=== PATIENT | male | born 1960 | race Caucasian/White ===

== ENCOUNTER 2017-07-06 15:31 | Emergency (ER) | payer BC, MEDICAID ==
[~2017-07-06] VITALS: Wt 82.0 kg
[2017-07-06] MEDS ORDERED: HYDR-906 PO (16:41)
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
[2017-07-06] MEDS ORDERED: HYDROCODONE/APAP (5/325) TAB PO ONE (17:00)
[2017-07-06 17:13] VITALS: BP 128/79; PULSE 89; RESP 17; TEMP 98.5
[2017-07-06] MEDS ORDERED: LORA1TAB PO (22:15)
[2017-07-06] MEDS ORDERED: QUET300T13 PO (22:16)
== END 2017-07-06 17:14 | disposition home or self-care (01) ==
LOC: E/R 15:31
DX: S33.5XXA Sprain of ligaments of lumbar spine, initial encounter (principal); G89.4 Chronic pain syndrome; F41.9 Anxiety disorder, unspecified; F17.210 Nicotine dependence, cigarettes, uncomplicated; X58.XXXA Exposure to other specified factors, initial encounter; Y92.9 Unspecified place or not applicable
CPT/HCPCS: Z7502; Z7610; 99283

== ENCOUNTER 2017-07-06 21:24 | Inpatient (IN) | payer MEDICAID ==
[~2017-07-06] VITALS: Ht 180.3 cm; Wt 82.0 kg
[~2017-07-06 21:24] MED LIST: HYDR-906 PO
[2017-07-06] MEDS ORDERED: HALOPERIDOL 5 MG INJ IM STA (21:40)
[2017-07-06] MEDS ORDERED: DIPHTH/TET/ACEL PERTUSS (ADULT) 0.5 ML VIAL IM* ONE (22:00)
[2017-07-06 22:15] LABS: ABNORMAL IP MESSAGE 1; BASOPHIL # 0.1 10^3/ul (0.0-0.1); BASOPHILS % 0.2 % (0.0-2.0); EOSINOPHILS % 0.2 % (0.0-7.0); HEMOGLOBIN 13.9 g/dl (14.0-18.0); LYMPHOCYTES # 1.8 10^3/ul (0.8-2.9); LYMPHOCYTES % 7.2 % (15.0-51.0); MEAN CORPUSCULAR HEMOGLOBIN 31.2 pg (29.0-33.0); MEAN CORPUSCULAR HGB CONC 34.8 g/dl (32.0-37.0); MEAN CORPUSCULAR VOLUME 89.7 fl (82.0-101.0); MEAN PLATELET VOLUME 10.7 fl (7.4-10.4); MONOCYTE # 1.7 10^3/ul (0.3-0.9); NEUTROPHIL # 20.5 10^3/ul (1.6-7.5); NEUTROPHILS % 83.9 % (39.0-77.0); PLATELET COUNT 259 10^3/UL (140-415); POSITIVE DIFF @See below; RED BLOOD COUNT 4.46 10^6/ul (4.70-6.10); RED CELL DISTRIBUTION WIDTH 12.4 % (11.5-14.5); WHITE BLOOD COUNT 24.5 10^3/ul (4.8-10.8)
[2017-07-06] MEDS ORDERED: LORA1TAB PO (22:15)
[2017-07-06] MEDS ORDERED: QUET300T13 PO (22:16)
[2017-07-06] MEDS ORDERED: KETOROLAC 15 MG INJ IV STA (22:30)
[2017-07-06] MEDS ORDERED: SOD CHLORIDE 0.9% 1,000 ML IV STA ×2 (22:30→23:30)
[2017-07-06 22:33] LABS: ALANINE AMINOTRANSFERASE 54 IU/L (13-69); ALBUMIN 5.2 g/dl (3.3-4.9); ALBUMIN/GLOBULIN RATIO 1.57; ALKALINE PHOSPHATASE 75 IU/L (42-121); ANION GAP 24 (8-16); ASPARTATE AMINO TRANSFERASE 75 IU/L (15-46); BILIRUBIN,INDIRECT 0.3 mg/dl (0-1.1); BILIRUBIN,TOTAL 0.3 mg/dl (0.2-1.3); BLOOD UREA NITROGEN 27 mg/dl (7-20); CALCIUM 10.7 mg/dl (8.4-10.2); CARBON DIOXIDE 23 mmol/L (21-31); CHLORIDE 104 mmol/L (97-110); CREATININE 2.29 mg/dl (0.61-1.24); GLUCOSE 134 mg/dl (70-220); POTASSIUM 4.6 mmol/L (3.5-5.1); SODIUM 146 mmol/L (135-144); TOTAL PROTEIN 8.5 g/dl (6.1-8.1)
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
[2017-07-06 22:47] LABS: ETHANOL < 10.0 mg/dl; SALICYLATE < 1.0 mg/dl (5.0-30.0)
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
[2017-07-07] VITALS (12 sets, daily range): BP systolic 108–134; BP diastolic 61–79; PULSE 75–94; RESP 16–20; TEMP 98.1; Ht 180.3 cm; Wt 82.0 kg
[2017-07-07] MEDS ORDERED: CEFTRIAXONE 1 GM/50 ML (PMX) 50 ML IVPB ONE
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
[2017-07-07 00:14] LABS: INR 1.05; PROTIME 13.8 Sec (11.9-14.9); PT RATIO 1.1
[2017-07-07 00:15] LABS: ADD UMIC YES; UR ASCORBIC ACID 40 mg/dL (NEGATIVE); UR BILIRUBIN (Dip) NEGATIVE (NEGATIVE); UR BLOOD (Dip) 1+ mg/dL (NEGATIVE); UR CLARITY SLIGHTLY CLOUDY (CLEAR); UR COLOR YELLOW (YELLOW); UR GLUCOSE (Dip) NEGATIVE (NEGATIVE); UR KETONES (Dip) TRACE mg/dL (NEGATIVE); UR LEUKOCYTE ESTERASE (Dip) NEGATIVE Leu/ul (NEGATIVE); UR MUCUS FEW /HPF (NONE SEEN); UR NITRITE (Dip) NEGATIVE (NEGATIVE); UR RBC 51 /HPF (0-5); UR TOTAL PROTEIN (Dip) 1+ mg/dl (NEGATIVE); UR UROBILINOGEN (Dip) NEGATIVE (NEGATIVE)
--- NOTE | 2017-07-07 00:37 | RADRPT ---
PROCEDURE: XR Knee. CLINICAL INDICATION: Trauma. Pain.. TECHNIQUE: Three views of the left knee are available for review. COMPARISON: None available FINDINGS: There is no fracture. Joint relationships are maintained. Bone mineralization is within normal xie its. A suprapatellar joint effusion is likely. Soft tissues are otherwise unremarkable. IMPRESSION: 1. Probable suprapatellar joint effusion. 2. No acute fracture or dislocation is seen. RPTAT: HMVK .Zenon Acuna MD, MD Date Time Electronically viewed and signed by .Zenon Acuna MD, MD on 07/07/2017 00:37 .K/
--- NOTE | 2017-07-07 00:42 | RADRPT ---
PROCEDURE: XR Knee. CLINICAL INDICATION: Left knee pain. TECHNIQUE: Three views of the left knee. COMPARISON: None available FINDINGS: There is no acute fracture or dislocation. The joint spaces are preserved. No joint effusion is id entified. IMPRESSION: 1. No acute fracture or dislocation of the left knee. RPTAT: HTAR .Alexander Cuba MD, MD Date Time Electronically viewed and signed by .Alexander Cuba MD, on 07/07/2017 00:41 .R/
[2017-07-07 01:41] LABS: BARBITURATES Negative (NEGATIVE); BENZODIAZEPINES Negative (NEGATIVE); CANNABINOIDS Negative (NEGATIVE); COCAINE Negative (NEGATIVE); OPIATES Positive (NEGATIVE)
[2017-07-07] MEDS ORDERED: ACETAMINOPHEN 325 MG TAB PO PRN (02:00)
[2017-07-07] MEDS ORDERED: HYDROmorphONE 0.5 MG/0.5 ML SYG IV PRN (02:00)
[2017-07-07] MEDS ORDERED: ONDANSETRON 4 MG INJ IV PRN (02:00)
[2017-07-07] MEDS ORDERED: NACL 0.9% 3 ML SYG IV SCH (02:00)
[2017-07-07] MEDS ORDERED: LORAZEPAM 2 MG INJ IV PRN (02:00)
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
[2017-07-07] MEDS ORDERED: SOD CHLORIDE 0.9% 1,000 ML IV SCH (03:30)
[2017-07-07] MEDS: HYDROCODONE/APAP (10/325) TAB PO PRN ×3 (03:59→21:33)
[2017-07-07 06:40] LABS: BASOPHILS % 0.2 % (0.0-2.0); EOSINOPHILS # 0.1 10^3/ul (0.0-0.5); EOSINOPHILS % 0.6 % (0.0-7.0); LYMPHOCYTES # 2.1 10^3/ul (0.8-2.9); MEAN CORPUSCULAR HEMOGLOBIN 30.2 pg (29.0-33.0); MEAN CORPUSCULAR HGB CONC 34.3 g/dl (32.0-37.0); MEAN CORPUSCULAR VOLUME 88.2 fl (82.0-101.0); MEAN PLATELET VOLUME 10.5 fl (7.4-10.4); MONOCYTES % 7.8 % (0.0-11.0); NEUTROPHIL # 9.8 10^3/ul (1.6-7.5); PLATELET COUNT 182 10^3/UL (140-415); RED BLOOD COUNT 3.97 10^6/ul (4.70-6.10); RED CELL DISTRIBUTION WIDTH 12.3 % (11.5-14.5)
[2017-07-07 07:12] LABS: ALBUMIN 3.6 g/dl (3.3-4.9); ALBUMIN/GLOBULIN RATIO 1.16; BILIRUBIN,INDIRECT 0.9 mg/dl (0-1.1); BILIRUBIN,TOTAL 0.9 mg/dl (0.2-1.3); CALCIUM 8.8 mg/dl (8.4-10.2); CHOL/HDL RATIO 3.4 RATIO; CREATININE 1.24 mg/dl (0.61-1.24); MAGNESIUM 1.9 mg/dl (1.7-2.5); POTASSIUM 3.8 mmol/L (3.5-5.1); TOTAL PROTEIN 6.7 g/dl (6.1-8.1)
[2017-07-07 07:32] LABS: THYROID STIMULATING HORMONE 1.03 MIU/L (0.465-4.680)
[2017-07-07] MEDS: morphine 2 MG INJ IV PRN ×3 (08:07→18:36)
[2017-07-07] MEDS ORDERED: QUETIAPINE 100 MG TAB PO SCH (09:00)
--- NOTE | 2017-07-07 11:12 | RADRPT ---
PROCEDURE: Renal US. CLINICAL INDICATION: Acute renal failure TECHNIQUE: Multiple sonographic images of the kidneys and bladder were obtained. The images were reviewed on a PACS workstation. COMPARISON: CT abdomen and pelvis without contrast of 07/06/2017 FINDINGS: The right kidney measures 10.4 cm and the left kidney 10 cm in length. No renal mass, calculus or hy dronephrosis is seen bilaterally. Woodson catheter in bladder. IMPRESSION: 1. Unremarkable renal ultrasound. RPTAT: HJES .Jordan Guido MD, MD Date Time Electronically viewed and signed by .Jordan Guido MD, MD on 07/07/2017 11:11 .S/
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
[2017-07-07] MEDS: QUETIAPINE 100 MG TAB PO SCH (21:34)
[2017-07-08] VITALS (10 sets, daily range): BP systolic 100–119; BP diastolic 62–80; PULSE 95–106; RESP 18–20
--- NOTE | 2017-07-08 09:39 | DS ---
Date/Time of Note Date/Time of Note DATE: 07/08/17 TIME: 09:25 Discharge Summary Admission/Discharge Info Admit Date/Time Jul 06, 2017 at 23:37 Discharge Date/Time Discharge Diagnosis Pubic ramus fracture Patient Condition: Fair Hospital Course The patient was found to have acute encephelopathy secondary to methamphetamine intoxication. HIs mental status resolved to baseline with observation alone. He was found to have a fracture of his superior and inferior pubic rami that appear to extend to the pubic symphysis. Dr Lawson consulted on the patient and recommended non-operative management and cleared the patient for discharge. He was encouraged to abstain from methampethamine use and to follow up with his primary doctor regarding the lung nodule seen on CT scan. He will follow up with Dr Lawson as an outpatient Home Meds Active Scripts Hydrocodone/Acetaminophen ([place] 5-325 Tablet) 1 Each Tablet, 1 EACH PO TID for PAIN, #6 TAB Prov:SIL PEARSON MD 07/06/17 Reported Medications Quetiapine Fumarate* (Seroquel*) 300 Mg Tablet, 600 MG PO DAILY, TAB 07/06/17 Lorazepam* (Lorazepam*) 1 Mg Tablet, 1 MG PO DAILY Y for ANXIETY, #60 TAB TAKE 1 TAB 2 OR 3 TIMES A DAY 07/06/17 Primary Care Provider Not On Staff Doctor Time spent on discharge: > 30 minutes VALENTINA COURTNEY MD Jul 08, 2017 09:39
[2017-07-08] MEDS: morphine 2 MG INJ IV PRN ×3 (11:05→19:48)
[2017-07-08] MEDS: HYDROCODONE/APAP (10/325) TAB PO PRN (18:23)
[2017-07-08] MEDS: QUETIAPINE 100 MG TAB PO SCH (21:07)
--- NOTE | 2017-07-08 21:10 | PSY ---
Date/Time of Note Date/Time of Note DATE: 07/09/17 TIME: 00:10 Psychiatric Subjective Eval Consent Pt consented to telemedicine: Yes Subjective Evaluation Patient location: inpatient Chief Complaint: running/yelling in street states " [x] trying to kill me", mult. abrasions History of present illness HPI: The patient is a 56 yo male with ho depression and psychosis, per notes and pt's hx (pt was very evasive, guarded), pt was psychotic, paranoid. It is not clear how police became involved but pt reports he heard a gunshot and was certain people were coming to his home or in his home trying to kill him so he jumped through a window in his home and was running through the streets saying people were going to kill him and was found by police, who then brought him in to hospital on 5149 . This occurred on 07/06/17. Pt broke pubic bone so is now on medicine. Pt initially denied methamphetamine use then said he has used methamphetamine on 07/05/17 after MD told pt that MD is aware that he used. Pt denies that this was related to methamphetamine. Pt martinez snot seem to be aware this was possibly related to methamphetamine but feels event was real. Reports that he his is very scared alone and left the house because she is too scared to be there alone as they are both scared of whomever was going to kill him. Pt initially denied psych admits then admitted it. Pt was very evasive throughout interview, said that he just wants to go home. Pt perseverated on having no si/hi. Past Psych Hx: hard to obtain due to pt's evasiveness but pt did admit to at least one past admit, denies suicide hx PMhx: broken pubic bone Meds: seroquel 600mg , lorazepam 1mg bid prn All: nkda MSE: lyingin bed, guarded, paranoid, evasive, superficial, persecutory delusions , no ah now but apparently endorsing AH from 2 days ago, denies si/hi, poor insight, poor judgment, poor reliability Imp: 56 yo male with unclear psych hx, appears to have ho psychosis and apparently worsened by methamphetamine use. He was bib [employer] on 5150 as he was so psychotic that he was gravely disabled, jumping out of windows (first floor) and running through traffic due to psychosis. Pt's guardednes, evasiveness, and continued endorsement of danger to him and his indicates that psychosis has not resolved and he remains in a psychotic relapse, that was so severe that pt jumped out of window, broke pubic, bone and was running through streets. This was only 2 days ago. Also, notes indicate that pt has been very agitated, in poor control. In addition he was demonstrating evasivenes and poor reliability.At this time, it would not be safe to discharge pt given that his psychosis was so severe 2 days ago that he jumped out of windo due to paranoia and broke pubic bone and ran through traffic. Based on current info, cannot safely discharge pt.Pt may need 5150 admit. However, would recommend parallel hx from his , as well as speaking with his outpatient psychiatrist to obtain more hx as well as paralllel hx about his baseline. Also recommend utox to confirm no more use of drugs as well as constant observation Medical history Problems Medical Problems: (1) Acute renal failure Status: Acute (2) Anxiety Status: Acute (3) Chronic pain Status: Acute (4) Dehydration Status: Acute (5) Knee sprain Status: Acute (6) Leukocytosis Status: Acute (7) Lumbar back sprain Status: Acute (8) Pain of hand Status: Acute (9) Pubic ramus fracture Status: Acute (10) Scalp abrasion Status: Acute (11) Suicidal ideation Status: Acute Allergies: Coded Allergies: No Known Allergy (Unverified , 07/06/17) Psychiatric Objective Eval Mental Status Examination: Laboratory Results Laboratory Tests Test 07/06/17 22:00 07/06/17 23:00 07/07/17 06:12 07/07/17 06:13 White Blood Count 24.510^3/ul 13.010^3/ul Red Blood Count 4.4610^6/ul 3.9710^6/ul Hemoglobin 13.9g/dl 12.0g/dl Hematocrit 40.0% 35.0% Mean Corpuscular Volume 89.7fl 88.2fl Mean Corpuscular Hemoglobin 31.2pg 30.2pg Mean Corpuscular Hemoglobin Concent 34.8g/dl 34.3g/dl Red Cell Distribution Width 12.4% 12.3% Platelet Count 54940^3/UL 32846^3/UL Mean Platelet Volume 10.7fl 10.5fl Neutrophils % 83.9% 75.0% Lymphocytes % 7.2% 16.0% Monocytes % 7.0% 7.8% Eosinophils % 0.2% 0.6% Basophils % 0.2% 0.2% Nucleated Red Blood Cells % 0.0/100WBC 0.0/100WBC Neutrophils # 20.510^3/ul 9.810^3/ul Lymphocytes # 1.810^3/ul 2.110^3/ul Monocytes # 1.710^3/ul 1.010^3/ul Eosinophils # 0.010^3/ul 0.110^3/ul Basophils # 0.110^3/ul 0.010^3/ul Nucleated Red Blood Cells # 0.010^3/ul 0.010^3/ul Prothrombin Time 13.8Sec Prothrombin Time Ratio 1.1 INR International Normalized Ratio 1.05 Sodium Level 146mmol/L 143mmol/L Potassium Level 4.6mmol/L 3.8mmol/L Chloride Level 104mmol/L 107mmol/L Carbon Dioxide Level 23mmol/L 26mmol/L Anion Gap 24 14 Blood Urea Nitrogen 27mg/dl 25mg/dl Creatinine 2.29mg/dl 1.24mg/dl Glucose Level 134mg/dl 91mg/dl Calcium Level 10.7mg/dl 8.8mg/dl Total Bilirubin 0.3mg/dl 0.9mg/dl Direct Bilirubin 0.00mg/dl 0.00mg/dl Indirect Bilirubin 0.3mg/dl 0.9mg/dl Aspartate Amino Transf (AST/SGOT) 75IU/L 102IU/L Alanine Aminotransferase (ALT/SGPT) 54IU/L 56IU/L Alkaline Phosphatase 75IU/L 56IU/L Total Protein 8.5g/dl 6.7g/dl Albumin 5.2g/dl 3.6g/dl Globulin 3.30g/dl 3.10g/dl Albumin/Globulin Ratio 1.57 1.16 Lipase 38U/L Salicylates Level < 1.0mg/dl Acetaminophen Level 11.0ug/ml Ethyl Alcohol Level < 10.0mg/dl Urine Color YELLOW Urine Clarity SLIGHTLY CLOUDY Urine pH 5.0 Urine Specific [place] 1.020 Urine Ketones TRACEmg/dL Urine Nitrite NEGATIVEmg/dL Urine Bilirubin NEGATIVEmg/dL Urine Urobilinogen NEGATIVEmg/dL Urine Leukocyte Esterase NEGATIVELeu/ul Urine Microscopic RBC 51/HPF Urine Microscopic WBC 6/HPF Urine Mucus FEW/HPF Urine Hemoglobin 1+mg/dL Urine Glucose NEGATIVEmg/dL Urine Total Protein 1+mg/dl Urine Opiates Screen Positive Urine Barbiturates Negative Urine Amphetamines Screen POSITIVE Urine Benzodiazepines Screen Negative Urine Cocaine Screen Negative Urine Cannabinoids Negative Osmolality 293mOsm/kg Magnesium Level 1.9mg/dl Triglycerides Level 44mg/dl Cholesterol Level 143mg/dl LDL Cholesterol, Calculated 92mg/dl HDL Cholesterol 42mg/dl Cholesterol/HDL Ratio 3.4RATIO Thyroid Stimulating Hormone (TSH) 1.030MIU/L Erythrocyte Sedimentation Rate 18mm/Hr Hemoglobin A1c 5.4% C-Reactive Protein 2.4mg/dl LILLIAN ELIZABETH Jul 08, 2017 21:10
[2017-07-09] VITALS (12 sets, daily range): BP systolic 99–133; BP diastolic 60–74; PULSE 87–103; RESP 17–20
[2017-07-09 02:05] LABS: ADD UMIC NO; UR ASCORBIC ACID NEGATIVE (NEGATIVE); UR BILIRUBIN (Dip) NEGATIVE (NEGATIVE); UR BLOOD (Dip) NEGATIVE (NEGATIVE); UR CLARITY CLEAR (CLEAR); UR COLOR STRAW (YELLOW); UR GLUCOSE (Dip) NEGATIVE (NEGATIVE); UR KETONES (Dip) NEGATIVE (NEGATIVE); UR LEUKOCYTE ESTERASE (Dip) NEGATIVE Leu/ul (NEGATIVE); UR NITRITE (Dip) NEGATIVE (NEGATIVE); UR SPECIFIC GRAVITY (Dip) 1.008 (1.003-1.030); UR TOTAL PROTEIN (Dip) NEGATIVE (NEGATIVE); UR UROBILINOGEN (Dip) NEGATIVE (NEGATIVE)
[2017-07-09] MEDS: morphine 2 MG INJ IV PRN ×4 (06:23→19:56)
[2017-07-09] MEDS: HYDROCODONE/APAP (10/325) TAB PO PRN ×2 (13:21→21:48)
--- NOTE | 2017-07-09 13:26 | PSY ---
Date/Time of Note Date/Time of Note DATE: 07/09/17 TIME: 16:19 Psychiatric Subjective Eval Consent Pt consented to telemedicine: Yes Subjective Evaluation Patient location: inpatient Chief Complaint: running/yelling in street states " [x] trying to kill me", mult. abrasions History of present illness HPI: The patient is a 56 yo male with ho depression and psychosis, per notes and pt's hx, pt was psychotic, paranoid. Pt was seen by this MD yesterday. Per that note, it is not clear how police became involved but pt reported he heard a gunshot and certain people were coming to his home or in his home trying to kill him so he jumped through a window in his home and was running through the streets saying people were going to kill him and was found by police, who then brought him in to hospital on 5150 . This occurred on 07/06/17. Pt broke pubic bone so is now on medicine. Pt initially denied methamphetamine use then said he has used methamphetamine on 07/05/17 after MD told pt that MD is aware that he used, ,yesterday. Pt denied that this was related to methamphetamine. Pt did not seem to be aware this was possibly related to methamphetamine but felt event was real. Reported that he his was very scared alone and left the house because she was too scared to be there alone as they are both scared of whomever was going to kill him. Pt initially denied psych admits then admitted it. Pt was very evasive throughout interview, said that he just wants to go home. Pt perseverated on having no si/hi. MD met with pt today. Hx the same though pt was more forthcoming, less guarded. He called his (per his report) who, per pt's report), told him that there was somone at the door who was antagonistic. It appears pt mistinterpreted what happened (likely due to methamphetamine) which led to him jumping out window and running through streets. Pt admits to using methamphetamine and reporting he will never use again. Reports is safe at home and he will go to live at home with . Denies si/hi. Pt in good control. Past Psych Hx: at least one past admit, denies suicide hx PMhx: broken pubic bone Meds: seroquel 600mg , lorazepam 1mg bid prn All: nkda MSE: lyingin bed, cooperative superficial but not as evasive or guarded as yesterday, forthcoming, repots that his feelings (delusions) from event felt real but currently does nto have these delusions, no si/hi Imp: 56 yo male with unclear psych hx. when he was admitted and yesterday was apparently still under influence of methamphetamine. While he still possibly has an underlying psych disorder, given how rapidly his sxs have resolved off methamphetamine and while taking meds, it is likely that the treatment along with beign sober has resulted in a substantial improvement in sxs. Therefore, pt is likely safe for discharge. However, as in yesterday's note, given the hx, this has to be confirmed with his and his outpatient psychiatrist (i.e., the hx has to be consistent) and he needs a plan for senior living (i.e., has to be ok taking him into her home) and outpatient psychiatrist has to be willing to see him right away. Only after these criteria have been met would it be safe for pt to be discharged, as it must be confirmed that pt is better, and is no longer a danger to himself due to grave disability or psychosis. Otherwise, continue current med regimen and constant observation Also recommend utox to confirm no more use of drugs as well as constant observation Medical history Problems Medical Problems: (1) Acute renal failure Status: Acute (2) Anxiety Status: Acute (3) Chronic pain Status: Acute (4) Dehydration Status: Acute (5) Knee sprain Status: Acute (6) Leukocytosis Status: Acute (7) Lumbar back sprain Status: Acute (8) Pain of hand Status: Acute (9) Pubic ramus fracture Status: Acute (10) Scalp abrasion Status: Acute (11) Suicidal ideation Status: Acute Allergies: Coded Allergies: No Known Allergy (Unverified , 07/06/17) Psychiatric Objective Eval Mental Status Examination: Laboratory Results Laboratory Tests Test 07/09/17 01:00 Urine Color STRAW Urine Clarity CLEAR Urine pH 6.0 Urine Specific [place] 1.008 Urine Ketones NEGATIVEmg/dL Urine Nitrite NEGATIVEmg/dL Urine Bilirubin NEGATIVEmg/dL Urine Urobilinogen NEGATIVEmg/dL Urine Leukocyte Esterase NEGATIVELeu/ul Urine Hemoglobin NEGATIVEmg/dL Urine Osmolality 277mOsm/kg Urine Random Sodium 49mmol/L Urine Glucose NEGATIVEmg/dL Urine Total Protein NEGATIVEmg/dl LILLIAN ELIZABETH Jul 09, 2017 13:26
--- NOTE | 2017-07-09 17:57 | PN ---
Date/Time of Note Date/Time of Note DATE: 07/09/17 TIME: 17:54 Assessment/Plan VTE Prophylaxis VTE Prophylaxis Intervention: SCD's Lines/Catheters IV Catheter Type (from Nrs): Saline Lock Assessment/Plan Chief Complaint/Hosp Course 1. Acute encephalopathy secondary to meth intoxication-mentation is now stable 2. Superior and inferior pubic rami fracture No surgery per Ortho, patient is ambulating 3. History of psychiatric disorder Patient does follow-up with a psychiatrist as an outpatient Test psych evaluation appreciated recommendation was to collaborate patient's story with outpatient psychiatrist and , psychiatrist is out of town states that patient can return home tomorrow Prophylaxis: SCDs Problems: Subjective 24 Hr Interval Summary Constitutional: no complaints Exam/Review of Systems Vital Signs Vitals Vital Signs Date Time Temp Pulse Resp B/P Pulse Ox O2 Delivery O2 Flow Rate FiO2 07/09/17 16:23 103 07/09/17 15:45 98.4 17 105/63 98 07/07/17 00:25 Room Air Intake and Output 07/08/17 07/08/17 07/09/17 14:59 22:59 06:59 Intake Total 720 ml 500 ml Output Total 300 ml 1100 ml Balance 420 ml -600 ml Exam Constitutional: alert, oriented Respiratory: clear to auscultation Cardiovascular: regular rate and rhythm Gastrointestinal: soft, No distended Musculoskeletal: nl extremities to inspection Results Result Diagram: 07/07/17 0613 07/07/17 0612 Results 24 hrs Laboratory Tests Test 07/09/17 01:00 Urine Color STRAW Urine Clarity CLEAR Urine pH 6.0 Urine Specific [place] 1.008 Urine Ketones NEGATIVE Urine Nitrite NEGATIVE Urine Bilirubin NEGATIVE Urine Urobilinogen NEGATIVE Urine Leukocyte Esterase NEGATIVE Urine Hemoglobin NEGATIVE Urine Osmolality 277 Urine Random Sodium 49 Urine Glucose NEGATIVE Urine Total Protein NEGATIVE Medications Medications Current Medications Ondansetron HCl (Zofran Inj) 4 mg Q6H PRN IV NAUSEA AND/OR VOMITING; Start 07/07/17 at 02:00 Acetaminophen (Tylenol Tab) 650 mg Q6H PRN PO PAIN LEVEL 1-3 OR FEVER; Start 07/07/17 at 02:00 Lorazepam (Ativan) 1 mg Q6H PRN IV AGITATION; Start 07/07/17 at 02:00 Morphine Sulfate (morphine) 2 mg Q4H PRN IV PAIN LEVEL 7-10 Last administered on 07/09/17 15:27; Admin Dose 2 MG; Start 07/07/17 at 02:00 Acetaminophen/ Hydrocodone Bitart ([place] ()) 1 tab Q6H PRN PO PAIN LEVEL 1-5 Last administered on 07/09/17 13:21; Admin Dose 1 TAB; Start 07/07/17 at 02 :00 Quetiapine Fumarate (Seroquel) 600 mg DAILY@21 PO Last administered on 21:07; Admin Dose 600 MG; Start 07/07/17 at 21:00 JOSE BEE Jul 09, 2017 17:57
[2017-07-09] MEDS ORDERED: BISACODYL (EC) 5 MG TAB PO ONE (18:00)
[2017-07-09] MEDS ORDERED: MAGNESIUM HYDROXIDE 30ML CUP PO PRN (18:00)
[2017-07-09] MEDS: SENNA TAB PO SCH (20:10)
[2017-07-09] MEDS: QUETIAPINE 100 MG TAB PO SCH (20:10)
[2017-07-09] MEDS: DOCUSATE SODIUM 100 MG CAP PO SCH (20:10)
[2017-07-10 00:05] VITALS: PULSE 90
[2017-07-10 00:19] VITALS: BP 111/65; RESP 20
[2017-07-10 04:04] VITALS: PULSE 85
[2017-07-10 05:57] VITALS: BP 108/68; RESP 20
[2017-07-10] MEDS: morphine 2 MG INJ IV PRN (06:11)
[2017-07-10 08:00] VITALS: BP 111/66; RESP 18
[2017-07-10 08:12] VITALS: PULSE 81
[2017-07-10] MEDS: DOCUSATE SODIUM 100 MG CAP PO SCH (09:08)
[2017-07-10] MEDS: SENNA TAB PO SCH (09:08)
[2017-07-10] MEDS: HYDROCODONE/APAP (10/325) TAB PO PRN (09:12)
--- NOTE | 2017-07-10 11:07 | PDOCDIS ---
Discharge Instructions DIAGNOSIS Discharge Diagnosis Pubic ramus fracture CONDITION Patient Condition: Good HOME CARE INSTRUCTIONS: Diet Instructions: Regular ACTIVITY: Activity Restrictions: No Restrictions FOLLOW UP/APPOINTMENTS Follow-up Plan F/U WITH YOUR PSYCHIATRIST, F/U WITH YOUR PCP IN 1-2 WEEKS JOSE BEE Jul 10, 2017 11:07
== END 2017-07-10 12:40 | disposition home or self-care (01) | DRG 535 ==
LOC: E/R 21:24 → TEL 23:37 → UNDODISIN 07-10 11:55
PROVIDERS: ADMIT Family Medicine; ATTEND Family Medicine
PROC: 3E0234Z Introduction of Serum, Toxoid and Vaccine into Muscle, Percutaneous Approach (ICD-10-PCS; principal; 2017-07-06)
DX: S32.591A Other specified fracture of right pubis, initial encounter for closed fracture (principal); G92 Toxic encephalopathy; N17.9 Acute kidney failure, unspecified; S32.19XA Other fracture of sacrum, initial encounter for closed fracture; R45.851 Suicidal ideations; I71.2 Thoracic aortic aneurysm, without rupture; S83.92XA Sprain of unspecified site of left knee, initial encounter; F20.9 Schizophrenia, unspecified; F32.9 Major depressive disorder, single episode, unspecified; F15.129 Other stimulant abuse with intoxication, unspecified; G47.00 Insomnia, unspecified; F41.9 Anxiety disorder, unspecified; G89.29 Other chronic pain; E86.0 Dehydration; S00.01XA Abrasion of scalp, initial encounter; S33.5XXA Sprain of ligaments of lumbar spine, initial encounter; D72.829 Elevated white blood cell count, unspecified; T43.625A Adverse effect of amphetamines, initial encounter; W13.4XXA Fall from, out of or through window, initial encounter; Y92.009 Unspecified place in unspecified non-institutional (private) residence as the place of occurrence of the external cause; Z23 Encounter for immunization
CPT/HCPCS: 36415; 70450; 71250; 72125; 73562; 74176; 76775; 80053; 80061; 80306; 80307; 81001; 81003; 83036; 83690; 83735; 83930; 83935; 84300; 84443; 85025; 85610; 85651; 86140; 90471; 90715; 96372; 96374; 96375; 97110; 97116; 97162; 97530; J0696; J1630; J1885; J2270; J7030

== ENCOUNTER 2017-09-06 11:26 | Emergency (ER) | END 2017-09-06 22:56 | disposition short-term general hospital (02) ==